=== PATIENT | male | born 2000 ===

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

== ENCOUNTER 2018-09-25 20:35 | Emergency (ER) | payer SELFPAY ==
[2018-09-25 20:35] VITALS: BMI 19.8
--- NOTE | 2018-09-25 20:50 | C.PDOC ---
History Of Present Illness 18 yr male p/w headache, lightheadedness. Pt notes dizziness described as lightheadedness 1 hour prior to arrival. He notes that he forgot to eat today and since has been feeling lightheaded. He notes the headache is a throbbing, without radiation, not worst of life and not "thunderclap." Not sudden in onset. No FND. HE also notes mild nausea. No fever, chills or night sweats. No neck stiffness. No abdominal pain, chest pain or weakness. No GI or complaints. NO fall or trauma. No other complaints. Time Seen by Provider: 09/25/18 20:49 Chief Complaint (Nursing): Dizziness/Lightheaded Past Medical History Vital Signs: Last Vital Signs Temp 98.8 F 09/25/18 20:42 Pulse 68 09/25/18 20:42 Resp 16 09/25/18 20:42 BP 119/70 09/25/18 20:42 Pulse Ox 97 09/25/18 20:42 - Medical History PMH: Depression Denies: Diabetes, Hepatitis, HIV, HTN, Chronic Kidney Disease, Seizures, Sexually Transmitted Disease - [facility] GROUP PSYCHOTHERAPY (03/03/18) INDIVIDUAL PSYCHOTHERAPY, COGNITIVE-BEHAVIORAL (03/03/18) INDIVIDUAL PSYCHOTHERAPY, SUPPORTIVE (03/03/18) Family History: States: Unknown Family Hx - Social History Hx Tobacco Use: No Hx Alcohol Use: No Hx Substance Use: No - Immunization History Hx Tetanus Toxoid Vaccination: No Hx Influenza Vaccination: No Hx Pneumococcal Vaccination: No Review Of Systems Constitutional: Negative for: Fever, Chills, Sweats, Weakness, Malaise Eyes: Negative for: Pain, Vision Change, Conjunctivae Inflammation, Eyelid Inflammation, Redness ENT: Negative for: Ear Pain, Ear Discharge, Nose Pain, Nose Discharge, Nose Congestion, Mouth Pain, Mouth Swelling, Throat Pain Cardiovascular: Negative for: Chest Pain, Palpitations, Orthopnea, Paroxysmal Noc. Dyspnea Respiratory: Negative for: Cough, Shortness of Breath, Hemoptysis, SOB with Excertion, Pleuritic Pain Gastrointestinal: Positive for: Nausea. Negative for: Vomiting, Abdominal Pain, Diarrhea, Constipation, Melena, Hematochezia, Hematemesis Genitourinary: Negative for: Dysuria, Frequency, Hematuria Musculoskeletal: Negative for: Neck Pain, Back Pain Skin: Negative for: Rash, Lesions, Jaundice Neurological: Positive for: Headache, Dizziness. Negative for: Weakness, Numbness, Incoordination, Change in Speech, Confusion, Seizures, Altered Mental Status Psych: Negative for: Anxiety, Depression, Psychosis, Suicidal ideation Physical Exam - Physical Exam Appears: Well, Non-toxic, No Acute Distress Skin: Normal Color, Warm Head: Atraumatic, Normacephalic, No Swelling, No Abrasion Eye(s): bilateral: Normal Inspection, PERRL, EOMI Ear(s): Bilateral: Normal Nose: Normal Oral Mucosa: Moist Tongue: Normal Appearing Lips: Normal Appearing Teeth: Normal Dentition Gingiva: Normal Appearing Throat: Normal, No Erythema, No Exudate Neck: Normal, Normal ROM, No Midline Cervical Tenderness, Supple, Other (no meningeal signs) Lymphatic: Normal Exam, No Adenopathy Chest: Symmetrical Cardiovascular: Rhythm Regular, No Friction Rub, No Murmur, No JVD Respiratory: Normal Breath Sounds, No Rales, No Rhonchi, No Stridor, No Wheezing Gastrointestinal/Abdominal: Normal Exam, Soft, No Tenderness Back: Normal Inspection, No CVA Tenderness, No Vertebral Tenderness Extremity: Normal ROM, No Tenderness Extremity: Bilateral: Atraumatic Neurological/Psych: Oriented x3, Normal Speech, Normal Cognition, Normal Cranial Nerves, No Cerebellar Signs, Normal Motor, Normal Sensation Gait: Steady Extremity: Right: No Drift, Left: No Drift ED Course And Treatment - Laboratory Results Result Diagrams: 09/25/18 21:43 09/25/18 21:43 O2 Sat by Pulse Oximetry: 97 Medical Decision Making Medical Decision Makin yr old male p/w lightheadedness and WU, not SAH like. No meningeal signs. No recent weight loss or FND. Likely 2/2 decreased PO intake. No signs of SI / HI or depression. normal affect. No dizziness reported. walking well w/ normal ce rebellar. Pending imaging, labs EK, nsr, no stemi 2218 labs largely unremarkable pt in NAD pending CT 0023 imaging unremarkable neuro exam remains normal walking well in nad, clear for d/c home w/ return indications and f/u Disposition - Disposition Referrals: Shahzad Lawson MD [Staff Provider] - [facility] [Outside] [facility] [Outside] [facility] [Outside] Disposition Time: 00:23 Condition: STABLE Additional Instructions: LIZZ LOVETT, thank you for letting us take care of you today. Your pr ovider was Nigel Olivas and you were treated for HEADACHE/BLURRED VISION. The emergency medical care you received today was directed at your acute symptoms. If you were prescribed any medication, please fill it and take as directed. It may take several days for your symptoms to resolve. Return to the Emergency Department if your symptoms worsen, do not improve, or if you have any other problems. Please contact your doctor or call one of the physicians/clinics you have been referred to that are listed on the Patient Visit Information form that is included in your discharge packet. Bring any paperwork you were given at discharge with you along with any medications you are taking to your follow up visit. Our treatment cannot replace ongoing medical care by a primary care provider outside of the emergency department. Thank you for allowing the [facility] team to be part of your care today. If you had an X-Ray or CT scan: A Radiologist will review the ED reading if any change in treatment is needed we will contact you. If you had a blood, urine, or wound culture: It will take several days for the results, if any change in treatment is needed we will contact you. If you had an STI test: It will take 48 hours for the results. Please call after 1 week if you have not heard back. Instructions: Headache, Adult, Headache, Adult (DC) Forms: [employer] (Pashto) - Clinical Impression Clinical Impression: Dizziness, Headache, Migraine
[2018-09-25] MEDS ORDERED: Sodium Chloride 0.9% 1,000 ML IV ONE (21:17)
[2018-09-25] MEDS ORDERED: Sodium Chloride 0.9% 1,000 ML ONE (21:31)
[2018-09-25 21:49] LABS: BASO % 0.6 % (0.0-2.0); EOS # 0.1 K/uL (0.0-0.7); EOS % 1.6 % (0.0-4.0); HEMOGLOBIN 14.6 g/dL (12.0-18.0); LYMPH # 2.4 K/uL (1.0-4.3); MEAN CELL VOLUME 87.3 fL (80.0-94.0); MEAN CORPUSCULAR HEMOGLOBIN 28.8 pg (27.0-31.0); MEAN PLATELET VOLUME 7.3 fL (7.2-11.7); MONO # 0.6 K/uL (0.0-0.8); MONO % 6.8 % (0.0-10.0); NEUT # 5.3 K/uL (1.8-7.0); RBC 5.06 Mil/uL (4.40-5.90); RED CELL DISTRIBUTION WIDTH 13.5 % (11.5-14.5); WHITE BLOOD COUNT 8.5 K/uL (4.8-10.8)
[2018-09-25 22:07] LABS: ALB/GLOB RATIO 1.7 (1.0-2.1); ALBUMIN 4.8 g/dL (3.5-5.0); ALT/SGPT 7 U/L (21-72); AST/SGOT 26 U/L (17-59); BLOOD UREA NITROGEN 13 mg/dL (9-20); CALCIUM 9.9 mg/dl (8.6-10.4); GFR NON-AFRICAN AMERICAN > 60
[2018-09-26 00:32] VITALS: BP 110/80; PULSE 80; RESP 14; TEMP 98; O2SAT 98
--- NOTE | 2018-09-26 08:00 | CT ---
Date of service: 09/25/2018 PROCEDURE: CT HEAD WITHOUT CONTRAST. HISTORY: Headache COMPARISON: None available. TECHNIQUE: Axial computed tomography images were obtained through the head/brain without intravenous contrast. Radiation dose: Total exam DLP = 1014.97 mGy-cm. This CT exam was performed using one or more of the following dose reduction techniques: Automated exposure control, adjustment of the mA and/or kV according to patient size, and/or use of iterative reconstruction technique. FINDINGS: HEMORRHAGE: No intracranial hemorrhage. BRAIN: No mass effect or edema. No atrophy or chronic microvascular ischemic changes. VENTRICLES: Unremarkable. No hydrocephalus. CALVARIUM: Unremarkable. PARANASAL SINUSES: Unremarkable as visualized. No significant inflammatory changes. MASTOID AIR CELLS: Unremarkable as visualized. No inflammatory changes. OTHER FINDINGS: None. IMPRESSION: No evidence of acute intracranial hemorrhage intracranial collection mass effect or midline shift. Preliminary report was submitted by [facility] Radiology contains concordant findings.
--- NOTE | 2018-09-28 12:22 | CARD ---
APPROVED REPORT Date of service: 09/25/2018 EKG Measurement Heart [id number] <Conclusion> Normal sinus rhythm Normal ECG
== END 2018-09-26 00:32 | disposition home or self-care (01) ==
LOC: C.ER 20:35
DX: R42 Dizziness and giddiness (principal); G43.909 Migraine, unspecified, not intractable, without status migrainosus
CPT/HCPCS: 70450; 80053; 82948; 85025; 93005; 96374; 96375; 99285; J2405; J2765; J7030